=== PATIENT | male | born 1995 | race Caucasian/White ===

== ENCOUNTER 2022-10-27 09:34 | Emergency (ER) | payer OTHER, SELFPAY ==
[2022-10-27 10:08] VITALS: BP 148/87; PULSE 98; RESP 20; TEMP 37.5; O2SAT 99
--- NOTE | 2022-10-27 11:19 | ED.URI ---
HPI - URI/Sore Throat General Chief Complaint: Upper Respiratory Infection Stated Complaint: sore throat Source: patient Mode of arrival: ambulatory Limitations: no limitations History of Present Illness HPI Narrative: 27-year-old male presents to [facility] with complaints of cough and sore throat since yesterday. Patient has not tried taking any [id number] medications for symptoms. Patient's currently was diagnosed with strep throat. Patient shortness of breath, wheezing, nausea, vomiting or diarrhea. MD elicited complaint: cough and sore throat Onset (ago): day(s) (1) Able to tolerate fluids by mouth: Yes Treatments prior to arrival: none Related Data Allergies Allergy/AdvReac Type Severity Reaction Status Date / Time No Known Allergies Allergy Verified 10/27/22 10:43 Review of Systems Constitutional: Constitutional: Denies chills, Denies fatigue, Denies fever(s) and Denies weakness ENT: Denies vertigo, Denies dizziness, Denies nasal congestion and Reports sore throat Cardiovascular: Cardiovascular: Denies chest pain Respiratory: Respiratory: Reports cough and Denies dyspnea Gastrointestinal: Gastrointestinal: Denies diarrhea, Denies nausea and Denies vomiting Integumentary/Breasts: Skin/Breast: Denies rash Allergic/Immunologic: Allergic/Immunologic: Denies lip swelling, Denies throat swelling, Denies tongue swelling and Denies wheezing PMFSH Social History Social History (Updated 10/27/22 @ 11:20 by Anh Oviedo, [employer]) Smoking status: Never smoker Comments At time of signature, I agree with nursing past medical, surgical, social and family history. There is no relevant family history pertinent to the presenting complaint. Exam Const: General: healthy appearing, no acute distress and alert Nutritional Appearance: well nourished Orientation/consciousness: patient oriented x3 Limitations: no limitations HENMT: Head: normal to inspection Ears: external ears normal and EAC's normal Face/Nose/Sinus: Normal external nose present Face and sinus: normal facial exam Teeth and gingiva: dentition normal Throat: uvula midline Other: 1 to 2+ swelling and moderate erythema noted to bilateral tonsils. No shifting uvula noted. No peritonsillar abscess noted. Neck: Neck: normal visual inspection Resp: Effort & Inspection: normal respiratory effort and not labored Auscultation: clear to auscultation bilaterally, no crackles, no rales, no rhonchi and no wheezes Cardio: Rate: regular rate Rhythm: regular rhythm Heart sounds: no murmurs Skin: General skin exam: normal color Rashes: no rashes Wounds: no wounds Neuro: General: patient oriented x3 Speech: normal speech Gait exam (Neuro): Normal gait present Psych: Affect: normal affect Attitude: cooperative Course Course Level of Care: Express Care Visit Vital Signs Vital signs: Vital Signs Temperature 37.5 C 10/27/22 10:08 Pulse Rate 98 10/27/22 10:08 Respiratory Rate 20 10/27/22 10:08 Blood Pressure 148/87 H 10/27/22 10:08 Pulse Oximetry 99 10/27/22 10:08 Oxygen Delivery Room Air 10/27/22 10:08 Temperature 37.5 C 10/27/22 10:08 Pulse Rate 98 10/27/22 10:08 Respiratory Rate 20 10/27/22 10:08 Blood Pressure 148/87 H 10/27/22 10:08 Pulse Oximetry 99 10/27/22 10:08 Oxygen Delivery Room Air 10/27/22 10:08 MDM - URI/Sore Throat MDM Narrative Medical decision making narrative: Patient agrees to alternate Motrin and Tylenol as needed. Instructed patient complete warm saltwater gargles as needed for throat pain. Patient agrees to his visit toothbrush 24 hours of starting antibiotic. Instructed patient to proceed to the emergency room if symptoms worsen Differential Diagnosis Differential diagnosis: Likely croup, otitis media and sinusitis Lab Data Labs: Strep Screen Positive Group A Strep *(Reference Range: Negative)* Critic
== END 2022-10-27 11:36 | disposition home or self-care (01) ==
PROVIDERS: Emergency Provider Nurse Practitioner Family; PCP Hospitalist
DX: J02.0 Streptococcal pharyngitis (principal)
CPT/HCPCS: 87880; 99213; G0463